=== PATIENT | male | born 1965 | race Caucasian/White ===

== ENCOUNTER 2019-02-24 06:37 | Emergency (ER) | payer OTHER ==
[~2019-02-24] VITALS: Ht 175.3 cm; Wt 127.0 kg
--- NOTE | 2019-02-24 07:34 | EKG ---
[facility] [address] [place] [address] Test Date: 2019-02-24 Test Time: 07:17:17 Pat Name: MANGO HIGUERA Department: Room: Gender: M Guest Services Officer: : 1965 Requested By: KAL GRACE Order Number: [id number] Reading MD: Measurements Intervals [place] Rate: 62 P: 45 WV: 162 QRS: 28 QRSD: 94 T: 14 QT: 396 QTc: 404 Interpretive Statements SINUS RHYTHM NO SPECIFIC ECG ABNORMALITIES RI6.01 No previous ECG available for comparison
[2019-02-24 07:37] LABS: BASO # 0.1 x10^3/uL (0.0-0.2); BASO % 1 % (0-3); EOS % 0 % (0-3); HEMATOCRIT 44.3 % (39.0-53.0); HEMOGLOBIN 15.2 g/dL (13.0-17.5); LYMPH # 1.7 x10^3/uL (1.0-4.8); LYMPH % 15 % (24-48); MEAN CORPUSCULAR HEMOGLOBIN 31 pg (25-35); MEAN CORPUSCULAR HGB CONC 34 g/dL (31-37); MEAN CORPUSCULAR VOLUME 89 fL (79-100); MONO # 0.8 x10^3/uL (0.0-1.1); MONO % 7 % (0-9); NEUT # 8.9 x10^3/uL (1.8-7.7); NEUT % 78 % (31-73); PLATELET COUNT 247 x10^3/uL (140-400); RED BLOOD COUNT 4.96 x10^6/uL (4.30-5.70); RED CELL DISTRIBUTION WIDTH 13.2 % (11.5-14.5); WHITE BLOOD COUNT 11.5 x10^3/uL (4.0-11.0)
[2019-02-24 07:40] LABS: BILIRUBIN,URINE NEGATIVE (NEG); CLARITY,URINE CLOUDY; COLOR,URINE YELLOW; NITRITE,URINE NEGATIVE (NEG); PROTEIN,URINE NEGATIVE (NEG-TRACE); UROBILINOGEN,URINE 0.2 mg/dL (0.2 mg/dL)
[2019-02-24] MEDS ORDERED: ONDANSETRON PF 4 MG/2 ML VIAL. IV ONE (07:45)
[2019-02-24] MEDS ORDERED: fentaNYL PF VIAL 100 MCG/2 ML VIAL IV ONE (07:45)
[2019-02-24] MEDS ORDERED: IV NORMAL SALINE 1000ML BAG 1,000 ML IV ONE (07:45)
[2019-02-24 07:47] LABS: CALCIUM 9.2 mg/dL (8.5-10.1); CREATININE 1.1 mg/dL (0.7-1.3); GFR 70.6; POTASSIUM 4.5 mmol/L (3.5-5.1)
[2019-02-24 07:48] LABS: AMORPHOUS SEDIMENT,UR PRESENT /HPF; BACTERIA,URINE FEW /HPF (0-FEW); RBC,URINE RARE /HPF (0-2); SQUAMOUS EPITHELIAL CELL,UR FEW /LPF; WBC,URINE RARE /HPF (0-4)
[2019-02-24 07:54] LABS: ALBUMIN 3.9 g/dL (3.4-5.0); ALBUMIN/GLOBULIN RATIO 1.1 (1.0-1.7); TOTAL BILIRUBIN 0.5 mg/dL (0.2-1.0); TOTAL PROTEIN 7.6 g/dL (6.4-8.2)
[2019-02-24 08:00] VITALS: BP 158/89
--- NOTE | 2019-02-24 08:06 | RAD ---
ABDOMEN LTD: 02/24/2019 7:06 AM Indication: 53 years old Male. Right upper quadrant pain. Comparison: None. TECHNIQUE: Sonographic evaluation of the right upper quadrant was performed utilizing grayscale and color Doppler imaging. FINDINGS: Liver: There is diffuse increased echogenicity of the hepatic parenchyma compatible with diffuse hepatocellular disease, most commonly due to steatosis. This decreases the sensitivity of ultrasound for the detection of focal hepatic lesions.. There is hepatopedal flow within the portal venous system. Right hepatic lobe measures 20.4 cm. Biliary system: CBD measures 6 mm. There is no intrahepatic or extrahepatic biliary dilatation. Gallbladder: Cholelithiasis without significant gallbladder wall thickening or pericholecystic fluid . Sonographic Lopez sign: Negative Pancreas: Not well visualized. Right kidney: 12.5 x 5.7 x 6.2 cm. No hydronephrosis. Normal echotexture without focal mass or renal calculus. Free fluid:None. IMPRESSION: 1. Significantly increased echogenicity of the hepatic parenchyma suggestive of hepatocellular disease, most commonly hepatic steatosis. Findings Limited evaluation for underlying hepatic masses. Hepatomegaly. 2. Cholelithiasis without intrahepatic or extrahepatic biliary ductal dilatation. No sonographic evidence for acute cholecystitis. Electronically signed by: Kimberley Almanza MD (02/24/2019 8:03 AM) [facility]
[2019-02-24] MEDS ORDERED: HYDR-3164 PO (08:29)
[2019-02-24] MEDS ORDERED: ONDA4TAB12 PO (08:29)
--- NOTE | 2019-02-24 09:25 | PHYS DOC ---
Past Medical History Past Medical History: High Cholesterol Past Surgical History: Tonsillectomy, Other Additional Past Surgical Histo: GROIN HERNIA Alcohol Use: Occasionally Drug Use: None Adult General Chief Complaint Chief Complaint: ABDOMINAL PAIN HPI HPI Patient is a 53 year old M P/W abdominal pain epigastric feels some soreness in the back onset after eating a meal last night had several episodes of nonbloody vomiting. The nausea is better now still having dull moderate pain points at the epigastric area. Of note also has been dealing with an umbilical hernia for the last couple of months. There is no pain there at all patient has been having normal bowel movements. Review of Systems Review of Systems Constitutional: Denies fever or chills [] Eyes: Denies change in visual acuity, redness, or eye pain [] HENT: Denies nasal congestion or sore throat [] Respiratory: Denies cough or shortness of breath [] Negative for chest pain Musculoskeletal: Denies back pain or joint pain [] Integument: Denies rash or skin lesions [] Neurologic: Denies headache, focal weakness or sensory changes [] Endocrine: Denies polyuria or polydipsia [] All other systems were reviewed and found to be within normal limits, except as documented in this note. Current Medications Current Medications Current Medications Medications (Trade) Dose Ordered Sig/Robinson Start Time Stop Time Status Last Admin Dose Admin Fentanyl Citrate (Fentanyl 2ml Vial) 50 mcg 1X ONCE 02/24/19 07:45 02/24/19 07:46 DC 02/24/19 07:38 50 MCG Ondansetron HCl (Zofran) 4 mg 1X ONCE 02/24/19 07:45 02/24/19 07:46 DC 02/24/19 07:38 4 MG Sodium Chloride 1,000 ml @ 1,000 mls/hr 1X ONCE 02/24/19 07:45 02/24/19 08:44 DC 02/24/19 07:38 1,000 MLS/HR Allergies Allergies Allergies Coded Allergies Type Severity Reaction Last Updated Verified No Known Drug Allergies 02/24/19 No Physical Exam Physical Exam Constitutional: Well developed, well nourished, no acute distress, non-toxic appearance. [] HENT: Normocephalic, atraumatic, bilateral external ears normal, oropharynx moist, no oral exudates, nose normal. [] Eyes: PERRLA, EOMI, conjunctiva normal, no discharge. [] Neck: Normal range of motion, no tenderness, supple, no stridor. [] Cardiovascular:Heart rate regular rhythm, no murmur [] Lungs & Thorax: Bilateral breath sounds clear to auscultation [] Abdomen: Bowel sounds normal, soft, epigastric and right upper quadrant tenderness with a negative Lopez's. There is a nontender reducible umbilical hernia Skin: Warm, dry, no erythema, no rash. [] Back: No tenderness, no CVA tenderness. [] Extremities: No tenderness, no cyanosis, no clubbing, ROM intact, no edema. [] Neurologic: Alert and oriented X 3, normal motor function, normal sensory function, no focal deficits noted. [] Psychologic: Affect normal, judgement normal, mood normal. [] Current Patient Data Vital Signs Vital Signs Date Time Temp Pulse Resp B/P (MAP) Pulse Ox O2 Delivery O2 Flow Rate FiO2 02/24/19 08:00 56 18 158/89 (112) 99 Room Air 02/24/19 06:55 98.2 98.2 Lab Values Laboratory Tests Test 02/24/19 07:05 02/24/19 07:27 Urine Collection Type Unknown Urine Color Yellow Urine Clarity Cloudy Urine pH 8.0 Urine Specific [place] 1.020 Urine Protein Negative mg/dL (NEG-TRACE) Urine Glucose (UA) Negative mg/dL (NEG) Urine Ketones (Stick) Negative mg/dL (NEG) Urine Blood Negative (NEG) Urine Nitrite Negative (NEG) Urine Bilirubin Negative (NEG) Urine Urobilinogen Dipstick 0.2 mg/dL (0.2 mg/dL) Urine Leukocyte Esterase Negative (NEG) Urine RBC Rare /HPF (0-2) Urine WBC Rare /HPF (0-4) Urine Squamous Epithelial Cells Few /LPF Urine Amorphous Sediment Present /HPF Urine Bacteria Few /HPF (0-FEW) Urine Mucus Slight /LPF White Blood Count 11.5 x10^3/uL (4.0-11.0) H Red Blood Count 4.96 x10^6/uL (4.30-5.70) Hemoglobin 15.2 g/dL (13.0-17.5) Hematocrit 44.3 % (39.0-53.0) Mean Corpuscular Volume 89 fL (79-100) Mean Corpuscular Hemoglobin 31 pg (25-35) Mean Corpuscular Hemoglobin Concent 34 g/dL (31-37) Red Cell Distribution Width 13.2 % (11.5-14.5) Platelet Count 247 x10^3/uL (140-400) Neutrophils (%) (Auto) 78 % (31-73) H Lymphocytes (%) (Auto) 15 % (24-48) L Monocytes (%) (Auto) 7 % (0-9) Eosinophils (%) (Auto) 0 % (0-3) Basophils (%) (Auto) 1 % (0-3) Neutrophils # (Auto) 8.9 x10^3/uL (1.8-7.7) H Lymphocytes # (Auto) 1.7 x10^3/uL (1.0-4.8) Monocytes # (Auto) 0.8 x10^3/uL (0.0-1.1) Eosinophils # (Auto) 0.0 x10^3/uL (0.0-0.7) Basophils # (Auto) 0.1 x10^3/uL (0.0-0.2) Sodium Level 141 mmol/L (136-145) Potassium Level 4.5 mmol/L (3.5-5.1) Chloride Level 103 mmol/L (98-107) Carbon Dioxide Level 28 mmol/L (21-32) Anion Gap 10 (6-14) Blood Urea Nitrogen 16 mg/dL (8-26) Creatinine 1.1 mg/dL (0.7-1.3) Estimated GFR (Cockcroft-Gault) 70.6 BUN/Creatinine Ratio 15 (6-20) Glucose Level 144 mg/dL (70-99) H Calcium Level 9.2 mg/dL (8.5-10.1) Total Bilirubin 0.5 mg/dL (0.2-1.0) Aspartate Amino Transferase (AST) 20 U/L (15-37) Alanine Aminotransferase (ALT) 33 U/L (16-63) Alkaline Phosphatase 47 U/L (46-116) Troponin I Quantitative < 0.017 ng/mL (0.000-0.055) Total Protein 7.6 g/dL (6.4-8.2) Albumin 3.9 g/dL (3.4-5.0) Albumin/Globulin Ratio 1.1 (1.0-1.7) Lipase 102 U/L (73-393) Laboratory Tests 02/24/19 07:27 Laboratory Tests 02/24/19 07:27 EKG EKG []EKG shows a normal sinus rhythm rate of 62 no acute ischemic changes noted no STEMI interpreted by me time of encounter Radiology/Procedures Radiology/Procedures [] Impressions: IMPRESSION: 1. Significantly increased echogenicity of the hepatic parenchyma suggestive of hepatocellular disease, most commonly hepatic steatosis. Findings Limited evaluation for underlying hepatic masses. Hepatomegaly. 2. Cholelithiasis without intrahepatic or extrahepatic biliary ductal dilatation. No sonographic evidence for acute cholecystitis. Electronically signed by: Philip Tabares MD (02/24/2019 8:03 AM) [facility] DICTATED and SIGNED BY: PHILIP TABARES MD DATE: 02/24/19802 Course & Med Decision Making Course & Med Decision Making Pertinent Labs and Imaging studies reviewed. (See chart for details) []Noted the ultrasound findings I did tell the patient about the fatty liver and the need for reevaluation with primary doctor regarding this. Overall 53-year-old male history of apparent hyperlipidemia presenting with epigastric pain and vomiting for about 12 hours patient was having improved pain in the emergency room after ER treatment. Tolerated oral prior to discharge. Working diagnosis at this time is cholelithiasis I did give the patient strict return precautions to come back for fever vomiting or any other new symptoms or concerns agreeable to the plan. Dragon Disclaimer Dragon Disclaimer This electronic medical record was generated, in whole or in part, using a voice recognition dictation system. Departure Departure Impression: Primary Impression: Cholelithiasis Disposition: 01 HOME, SELF-CARE Condition: STABLE Referrals: KEELEY TREJO MD Patient Instructions: Cholelithiasis, [id number] Scripts Ondansetron (ONDANSETRON ODT) 4 Mg Tab.rapdis 1 TAB PO PRN Q6-8HRS PRN for NAUSEA/VOMITING, #16 TAB Prov: KAL GRACE MD 02/24/19 Hydrocodone/Apap 5-325 (NORCO 5-325 TABLET) 1 Each Tablet 1-2 EACH PO PRN Q6HRS PRN for PAIN, #15 as needed for pain Prov: KAL GRACE MD 02/24/19 KAL GRACE MD Feb 24, 2019 09:24
== END 2019-02-24 08:35 | disposition home or self-care (01) ==
LOC: ER 06:37
DX: K80.20 Calculus of gallbladder without cholecystitis without obstruction (principal); R11.2 Nausea with vomiting, unspecified; E78.00 Pure hypercholesterolemia, unspecified; Z90.89 Acquired absence of other organs
CPT/HCPCS: 36415; 76705; 80053; 81001; 83690; 84484; 85025; 93005; 96361; 96374; 96375; 99285; J2405; J3010; J7030

== ENCOUNTER → 2019-03-20 | Day surgery (SDC) | payer OTHER ==
[~2019-03-20] VITALS: Ht 175.3 cm; Wt 121.0 kg
[~2019-03-20] MED LIST: ACETAMINOPHEN 500 MG TABLET PO ONE; ATOR20TA58 PO; BUPIVACAINE-EPI 0.25%-1:200000 MPF 30 ML VIAL. INJ ONE; DEXAMETHASONE SOD PHOS 20 MG/5 ML VIAL. ONE; GLYCOPYRROLATE 1 MG/5 ML VIAL. ONE; HYDR-3164 PO; HYDROmorphone 2 MG/ML VIAL IV PRN; INDOCYANINE GREEN 2.5 MG in TOTAL VOLUME SYRINGE 1 ML IVP ONE; IV RINGERS,LACTATED 1000ML 1,000 ML IV SCH; KETOROLAC 30 MG/ML VIAL. ONE; LIDOCAINE 1% PF 2 ML VIAL. ID PRN; LIDOCAINE 2% PF 5 ML VIAL. ONE; MIDAZOLAM HCL/PF 2 MG/2 ML VIAL. ONE; MORPHINE SULFATE 2 MG/ML VIAL. IV PRN; MULT-730 PO; NEOSTIGMINE METHYLSULFATE 5 MG/5 ML SYRINGE. ONE; ONDA4TAB12 PO; ONDANSETRON PF 4 MG/2 ML VIAL. IV PRN; ONDANSETRON PF 4 MG/2 ML VIAL. ONE; PROCHLORPERAZINE 10 MG/2 ML VIAL. IV PRN; PROPOFOL 20 ML IV ONE; ROCURONIUM 100 MG/10 ML VIAL. ONE; SEVOFLURANE 61 TO 120 MINUTES. IH ONE; fentaNYL PF VIAL 100 MCG/2 ML VIAL IV PRN; fentaNYL PF VIAL 100 MCG/2 ML VIAL ONE; oxyCODONE/APAP 5/325 1 TAB TABLET ONE; oxyCODONE/APAP 5/325 1 TAB TABLET PO ONE
--- NOTE | 2019-03-20 10:05 | PDOC4 ---
Operative Note Operative Note Date: 03/20/2019 Preoperative diagnosis: Incarcerated umbilical hernia, chronic cholecystitis cholelithiasis Postoperative diagnosis: Same Procedure: Robotic-assisted laparoscopic umbilical hernia repair and cholecystectomy Surgeon: Deny Specimen: Gallbladder Dictation: Patient is 53-year-old male with right upper quadrant abdominal pain and ultrasound showing gallstones mildly thickened gallbladder wall and also complains of a painful bulge at his umbilicus consistent with a incarcerated umbilical hernia. Procedure of robotic-assisted laparoscopic cholecystectomy and umbilical hernia repair was explained to the patient detail risk benefits were also discussed including bleeding infection injury to intra-abdominal contents possibly necessitating further or open operations alternatives to this procedure also discussed with patient who seemed to understand and gave both verbal and written consent to have the procedure performed. Patient was taken to the operating room placed in supine position general anesthesia was initiated once patient was sleep and intubated his abdomen was prepped and draped usual sterile fashion using ChloraPrep. An area in the left upper quadrant was injected with quarter percent Marcaine with epinephrine incision was made 11 blade scalpel 5 mm Visiport was placed under direct visualization creating pneumoperitoneum abdomen was inspected no other abdomen maladies noted other than the hernia. Da Suzanne 8 mm port was placed in the mid abdomen one left lower abdomen and one in the left up per abdomen. The da Suzanne robot was brought and docked all port sites using a grasper and Endo Slava scissors the surgical to the robotic console and the hernia contents were reduced hernia defect was then closed with a running 20V LOC nonabsorbable suture. Bard ventral light ST mesh was then placed over the hernia defect this was sewn in place with a running 2-0 V LOC absorbable suture. This point surgeon went back to the operative field a port wa s placed in the right mid abdomen and one in the right lateral abdomen returning to the robotic console the gallbladder was grasped and retracted cephalad a alligator grasper was also placed through separate stab incision in the right upper quadrant grabbing the dome of the gallbladder retracted cephalad infundibulum of the gallbladder was grasped and retracted laterally exposing the triangle adherent tissues of the triangle were taken down with blunt and sharp dissection exposing the cystic duct and cystic artery both were clipped with hemoclips and transected the gallbladder was taken off the liver with a clot cautery in the right upper quadrant was irrigated and suctioned dry. The gallbladder was placed in a Endo Catch bag and removed from the mid right a bdominal port site. The port site that the gallbladder was removed from's fascia was closed with [id number] 0 Vicryl suture and the skin was approximate all port sites for septic and a Monocryl Mastisol Steri-Strips and island dressings were applied. Patient was awakened and asked bated operating room taken to recovery in stable condition all sponge instrument needle counts listed as correct estimated blood loss 10 mL. SHERRELL ALEXIS MD Mar 20, 2019 10:05
--- NOTE | 2019-03-20 10:07 | DISCH ---
DISCHARGE INSTRUCTIONS Condition on Discharge Condition on Discharge: Stable Activity After Discharge Activity Instructions for Disc: Avoid exertion Other activity instructions: no lifting more than 20 pounds for 2 weeks Diet after Discharge Diet after Discharge: Low Fat Wound Incision Care Other wound/incision instructi: patient shower in 24 hours Contacting the DRLauren after DC Call your doctor for: If your condition worsens Follow-Up Follow up with: Deny in 2 weeks SHERRELL ALEXIS MD Mar 20, 2019 10:07
[2019-03-20] MEDS: fentaNYL PF VIAL 100 MCG/2 ML VIAL IV PRN ×2 (10:48→11:15)
[2019-03-20 10:51] VITALS: BP 132/62
--- NOTE | 2019-03-23 15:07 | PATHOLOGY ---
[facility] Accession Number: [id number] . 01 Material submitted: . gallbladder - GALLBLADDER . 01 Clinical history: . Chronic cholecystitis . 02 Diagnosis: Gallbladder, laparoscopic cholecystectomy: - Cholelithiasis. - Chronic cholecystitis with focally increased eosinophils. (JPM:[facility]; 03/23/2019) S 03/23/2019 1024 Local . 02 Comment: There is no evidence of malignancy. . 02 Electronically signed: . Stanislaw Watts MD, Pathologist NPI- [id number] . 01 Gross description: . The specimen is received in formalin, labeled "Feliberto Lawrence, gallbladder", is focally disrupted gallbladder measuring 7.0 cm in length and 3.2 cm in maximum diameter with a cuadra-yellow serosa. The cystic duct is impacted by a calculus. The neck region is dilated. The gallbladder lumen contains minimal yellow-green bile and multiple multifaceted green-sierra calculi and its fragments measuring 4.5 x 3.4 x 1.5 cm in aggregate. The mucosa has several denuded focal areas and with no cholesterolosis. The wall is 0.1 cm in average thickness. Representatively submitted in A1. ([facility]; 03/20/2019) [facility] 03/23/2019 1023 Local . 02 Pathologist provided ICD-10: K80.10 . 02 CPT . 077793 Specimen Comment: A courtesy copy of this report has been sent to Specimen Comment: [phone]. Specimen Comment: Report sent to Performed at: 01 [facility] [address], [place], [place] [id number] MD Dominguez Wahl MD Phone: [phone] Performed at: 02 [facility] [address] [place], [place] [id number] MD Stanislaw Watts MD Phone: [phone]
== END ==
LOC: SURG 06:32
PROVIDERS: ATTEND Surgery
DX: K80.10 Calculus of gallbladder with chronic cholecystitis without obstruction (principal); K42.0 Umbilical hernia with obstruction, without gangrene; E78.00 Pure hypercholesterolemia, unspecified; Z98.890 Other specified postprocedural states; Z72.89 Other problems related to lifestyle
CPT/HCPCS: 47562; 49587; 88304; A7015; C1781; J0696; J1100; J1885; J2001; J2250; J2405; J2704; J2710; J3010; J3490; J7030; J7120